=== PATIENT | female | born 2000 | race African-American/Black ===

== ENCOUNTER 2023-05-05 17:06 | Emergency (ER) | payer MEDICAID, OTHER ==
[~2023-05-05] VITALS: Ht 162.6 cm; Wt 62.3 kg
[2023-05-05 18:30] VITALS: BP 121/72; PULSE 75; RESP 18; TEMP 98.3; O2SAT 97
[2023-05-05] MEDS ORDERED: IBUP-1456 PO (19:16)
[2023-05-05] MEDS ORDERED: KETOROLAC TROMETH 60MG/2ML VIAL IM ONE (20:15)
== END 2023-05-05 19:43 | disposition home or self-care (01) ==
LOC: ER 17:06
DX: G43.909 Migraine, unspecified, not intractable, without status migrainosus (principal)
CPT/HCPCS: 70450; 96372; 99285; J1885